=== PATIENT | male | born 1945 | race Caucasian/White ===

== ENCOUNTER → 2018-06-23 11:19 | Outpatient (CLI) | payer MEDICARE, OTHER, SELFPAY ==
--- NOTE | 2018-06-23 11:20 | DI.US.S_ITS ---
PROCEDURE: US ABD AORTA ANEURYSM SCREEN INDICATIONS: SCREENING TECHNIQUE: Real time scanning was performed of the aorta and iliac arteries, with image documentation. COMPARISON: None. FINDINGS: Aorta: Proximal aortic is not seen. Mid-aorta measures 1.9 cm. Distal aortic diameter is 1.9 cm. Iliac arteries: Right common iliac artery measures 1.4 cm. Left common iliac artery measures 1.3 cm. IMPRESSION: Negative for aneurysm. Dictated by: Derrick Wise M.D. on 06/23/2018 at 13:08 Approved by: Derrick Wise M.D. on 06/23/2018 at 13:09
== END ==
PROVIDERS: Family Provider Family Medicine; PCP Student in an Organized Health Care Education/Training Program; Visit Provider Student in an Organized Health Care Education/Training Program
DX: Z13.6 Encounter for screening for cardiovascular disorders (principal)
CPT/HCPCS: 76706

== ENCOUNTER → 2018-07-28 11:33 | Outpatient (CLI) | payer MEDICARE, OTHER, SELFPAY ==
[2018-07-28 12:42] LABS: BUN Creatinine Ratio 35.7 (6-22); Blood Urea Nitrogen 25 mg/dL (9-20); Calcium 9.9 mg/dL (8.4-10.2); Carbon Dioxide 23 mmol/L (22-32); Chloride 106 mmol/L (98-107); Cholesterol 130 mg/dL (140-199); Estimated Glomerular Filt Rate > 60.0 mL/min (>60); Glucose 90 mg/dL (80-110); HDL Cholesterol 35 mg/dL (40-60); HEMOLYSIS 28 (0-50); LDL Cholesterol Calculated 75 mg/dL (<100); Potassium 4.8 mmol/L (3.4-5.1); Sodium 141 mmol/L (137-145); Triglycerides 102 mg/dL (35-150)
[2018-07-28 15:34] LABS: Vitamin D 25 Hydroxy (D3) 23.6 ng/mL (30.0-100.0)
== END ==
PROVIDERS: PCP Student in an Organized Health Care Education/Training Program; Visit Provider Student in an Organized Health Care Education/Training Program
DX: Z13.220 Encounter for screening for lipoid disorders (principal); I10 Essential (primary) hypertension; E55.9 Vitamin D deficiency, unspecified
CPT/HCPCS: 36415; 80048; 80061; 82306

== ENCOUNTER 2018-12-05 06:53 | Day surgery (SDC) | payer MEDICARE, OTHER, SELFPAY ==
--- NOTE | 2018-12-05 | PATH_ITS ---
[facility] Accession Number: [id number] . 01 Material submitted: . PART A: colon - APPENDOCELE OPENING POLYP PART B: colon - ASCENDING COLON POLYP PART C: anal canal - ANAL VERGE POLYP . 02 Diagnosis: A. Appendiceal Opening, Polyp, Biopsy: Benign lymphoid aggregate. . B. Ascending Colon, Polyp, Biopsy: Tubular adenoma. . C. Anal Verge, Polyp, Biopsy: Inflammatory polyp. Negative for dysplasia and malignancy. MRV/12/06/2018 . 02 Electronically signed: . Tasneem Rock MD, Pathologist NPI- [id number] . 01 Gross description: . Part A: APPENDOCELE OPENING POLYP: Received in formalin are 2 fragment(s) of arango, soft tissue measuring 0.1 x 0.1 x 0.1 cm to 0.3 x 0.2 x 0.2 cm which is entirely submitted and submitted entirely in 1 cassette(s) Part B: ASCENDING COLON POLYP: Received in formalin are 3 fragment(s) of arango, soft tissue measuring 0.1 x 0.1 x 0.1 cm to 0.3 x 0.2 x 0.2 cm which is entirely submitted and submitted entirely in 1 cassette(s) Part C: ANAL VERGE POLYP: Received in formalin is 1 fragment(s) of arango, soft tissue measuring 0.3 x 0.2 x 0.2 cm which is entirely submitted and submitted entirely in 1 cassette(s) /[facility] /[facility] . 02 Pathologist provided ICD-10: D12.2 . 02 CPT . 331423, 440218, 740111 Performed at: [address], [place], [place] [id number] MD Kyaw Olvera MD Phone: [phone] Performed at: 02 [facility] [address] [place] [id number] MD Tasneem Rock MD Phone: [phone]
[2018-12-05 07:52] VITALS: BMI 35.6
[2018-12-05 08:02] VITALS: BP 123/72; PULSE 58; RESP 20; TEMP 37.2; O2SAT 95
[2018-12-05] MEDS: SODIUM CHLORIDE 0.9% 1,000 ML 200 ML IV (08:17)
--- NOTE | 2018-12-05 09:12 | PM.HP.1 ---
History of Present Illness Date Patient Seen: 12/05/18 Time Patient Seen: 09:00 Chief complaint: [id number] SCREENING COLONOSCOPY Narrative: Patient is a gentleman here for a screening colonoscopy. His last exam was in the early . 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 Mother Diabetes mellitus Suicide Brother No problems noted. Family/Other No problems noted. Social History (Updated 05/02/18 @ 20:37 by RAS Norris) household members: family Smoking Status: Former smoker (30 years ago) alcohol intake: current substance use type: does not use Type(s) of exercise: none Family & Social History Family History Brother Diabetes mellitus Father No problems noted. Mother Diabetes mellitus Suicide Brother No problems noted. Family/Other No problems noted. Social History: household members family Tobacco & Substance use: Smoking Status Former smoker alcohol intake current Meds Home Medications Medication Instructions Recorded Confirmed Type dorzolamide 1 drp OPHTH BID #0 04/11/17 12/05/18 History latanoprost 1 drp OPHTH HS #0 04/11/17 12/05/18 History timolol maleate 1 drp OPHTH BID #0 04/11/17 12/05/18 History diphenhydramine-acetaminophen 2 tab PO HSP PRN #0 07/26/17 12/05/18 History [Tylenol PM Extra Strength] aspirin 81 mg chewable tablet 81 mg PO DAILY #90 tab 02/02/18 12/05/18 Rx meloxicam 15 mg tablet 15 mg PO Q DAY #90 tabs 06/12/18 12/05/18 Rx telmisartan 80 mg tablet 80 mg PO Q DAY #90 tab 07/13/18 12/05/18 Rx amlodipine 10 mg tablet 10 mg PO Q DAY #90 tab 11/06/18 12/05/18 Rx atorvastatin 40 mg tablet 40 mg PO HS #90 tab 11/06/18 12/05/18 Rx sertraline 100 mg tablet 100 mg PO Q DAY #90 tab 11/06/18 12/05/18 Rx tamsulosin 0.4 mg capsule 0.4 mg PO QDAY #90 cap 11/06/18 12/05/18 Rx Respironics Dreamstation BIPAP #1 ea 11/20/18 History Allergies Allergy/AdvReac Type Severity Reaction Status Date / Time No Known Drug Allergies Allergy Verified 12/05/18 08:07 Review of Systems Review of Systems All systems reviewed & are unremarkable except as noted in HPI and below Genitourinary Comments: Post void residual. Some frequency. Musculoskeletal Comments: Pain in hip post replacement. Exam Vital Signs (past 8 hours): - 12/05/18 08:02 Temperature 99.0 F Pulse Rate 58 L Respiratory Rate 20 Blood Pressure 123/72 Pulse Oximetry 95 Oxygen Delivery Method Room Air Narrative Exam Narrative: Pleasant cooperative patient no apparent distress. Lungs are clear to auscultation. No rales or rhonchi. Heart regular rate and rhythm no murmur gallop. Abdomen is soft nontender without mass. Quite protuberant No obvious hernias. Patient is alert and oriented x3. Assessment & Plan Assessment & Plan narrative: The patient for a screening colonoscopy. I have discussed the procedure with them. Risks of bleeding, perforation which would necessitate major operation, failure to find remove all lesions, the potential tattoo were all discussed. All questions were answered. They wished to proceed.
--- NOTE | 2018-12-05 09:14 | PM.PREOP ---
Pre-operative Note Interval Note History & Physical reviewed/Exam performed by Physician: Yes Changes to H&P: No ASA Class (for procedural sedation): III
[2018-12-05] MEDS: fentaNYL 250 MCG/5 ML INJ IV (09:38)
[2018-12-05] MEDS: MIDAZOLAM 5 MG/5 ML VIAL IV (09:40)
--- NOTE | 2018-12-05 09:51 | PM.OP.ENDO ---
Operative Date/Time/Diagnoses Date of procedure: 12/05/18 Time of procedure: 09:51 Pre-op diagnosis: Screening exam. Last exam over 15 years ago Post-op diagnosis: same (Possible polyps at the appendiceal opening, the ascending colon, and the anal verge.) Procedure & Clinicians Study performed: Colonoscopy with cold biopsy Same procedure as scheduled: Yes Indications: Screening Surgeon: Scott Ferrera Procedure Notes SCOAP/Timeout: Performed Procedure in detail: The patient was placed in the left lateral decubitus position and underwent IV sedation directed by the surgeon consisting of fentanyl and Versed. Digital exam was unremarkable. I really could not feel his prostate well due to his anatomy and the length of my finger.. The scope was inserted and advanced through the rectum into the sigmoid, descending, transverse, and ascending colon. Pressure was applied.. The cecum was reached identified by the ileocecal valve and the appendiceal opening. There was a tiny lesion in the appendiceal opening which I biopsied and removed. It may not be a polyp. The scope was gradually brought out. An additional tiny Polypoid lesion was found at the ascending colon. It was removed with biopsy forceps. The remainder of the colon was unremarkable. The scope ultimately was retroflexed in the rectum. The appearance was notable for what appeared to be a polyp like lesion. I biopsied it but only took 1 sample because it immediately began to bleed a bit and was clearly on a hemorrhoid. This made me suspect this was probably a scar. However we submitted the specimen.. The scope was removed and the patient tolerated the procedure well. The prep was adequate. Sedation minutes: 32 Findings: polyp (Possible polyps) Specimen(s): other (Lesion of the appendiceal opening, ascending colon, anus.) Complications: none Recommendations: Colonscopy in 5 years (Unless none of the lesions are neoplastic. Then you do not need to have another colonoscopy for screening purposes.) Follow up: as needed Disposition: PACU
[2018-12-05 09:55] VITALS: BP 138/76; PULSE 58; RESP 12; O2SAT 95
[2018-12-05 10:02] VITALS: BP 140/79; PULSE 60; RESP 14; TEMP 37; O2SAT 95
[2018-12-05 10:07] VITALS: BP 108/54; PULSE 85; RESP 15; O2SAT 95
[2018-12-05 10:11] VITALS: BP 112/55; PULSE 96; RESP 14; TEMP 36.9; O2SAT 94
[2018-12-05 10:21] VITALS: BP 117/69; PULSE 59; RESP 16; TEMP 36.6; O2SAT 96
== END 2018-12-05 10:50 | disposition home or self-care (01) ==
PROVIDERS: Family Provider Family Medicine; PCP Student in an Organized Health Care Education/Training Program; Visit Provider Specialist
PROC: 0DJD8ZZ Inspection of Lower Intestinal Tract, Via Natural or Artificial Opening Endoscopic (ICD-10-PCS; CPT 45378; principal; 2018-12-05 08:45)
DX: Z12.11 Encounter for screening for malignant neoplasm of colon (principal); G47.33 Obstructive sleep apnea (adult) (pediatric); E78.5 Hyperlipidemia, unspecified; I10 Essential (primary) hypertension; E66.9 Obesity, unspecified; Z68.30 Body mass index [BMI] 30.0-30.9, adult; D12.2 Benign neoplasm of ascending colon; K62.0 Anal polyp
CPT/HCPCS: 45380; 88305; 99152; 99153; J2250; J3010

== ENCOUNTER → 2019-08-02 12:59 | Outpatient (CLI) | payer MEDICARE, OTHER, SELFPAY ==
[2019-08-02 14:00] LABS: Hematocrit 46.4 % (41-53); Hemoglobin 16.1 g/dL (13.5-17.5); Mean Corpuscular HGB Conc 34.7 % (30-36); Mean Corpuscular Hemoglobin 31.6 PG (26-34); Mean Corpuscular Volume 91.3 fL (80-100); Platelet Count 320 X10^3/uL (150-400); Red Blood Cell Count 5.08 X10^6/uL (4.5-5.9); Red Cell Distribution Width 13.4 % (11.6-14.8); White Blood Cell Count 8.8 X10^3/uL (4.5-11.0)
[2019-08-02 14:43] LABS: BUN Creatinine Ratio 31.1 (6-22); Blood Urea Nitrogen 28 mg/dL (9-20); Calcium 10.1 mg/dL (8.4-10.2); Carbon Dioxide 30 mmol/L (22-32); Chloride 104 mmol/L (98-107); Estimated Glomerular Filt Rate > 60.0 mL/min (>60); Glucose 91 mg/dL (80-110); HEMOLYSIS < 15 (0-50); Potassium 4.8 mmol/L (3.4-5.1); Sodium 142 mmol/L (137-145)
== END ==
PROVIDERS: PCP Student in an Organized Health Care Education/Training Program; Visit Provider Student in an Organized Health Care Education/Training Program
DX: G47.30 Sleep apnea, unspecified (principal); I10 Essential (primary) hypertension; Z79.899 Other long term (current) drug therapy
CPT/HCPCS: 36415; 80048; 85027

== ENCOUNTER → 2020-08-08 13:56 | Outpatient (CLI) | payer MEDICARE, OTHER, SELFPAY ==
[2020-08-08 14:55] LABS: BUN Creatinine Ratio 27.3 (6-22); Blood Urea Nitrogen 21 mg/dL (9-20); Calcium 9.5 mg/dL (8.4-10.2); Carbon Dioxide 29 mmol/L (22-32); Chloride 105 mmol/L (98-107); Estimated Glomerular Filt Rate > 60.0 mL/min (>60); Glucose 92 mg/dL (80-110); HEMOLYSIS < 15 (0-50); Potassium 4.3 mmol/L (3.4-5.1); Sodium 137 mmol/L (137-145)
[2020-08-08 15:18] LABS: Vitamin D 25 Hydroxy (D3) 31.3 ng/mL (30.0-100.0)
== END ==
PROVIDERS: PCP Student in an Organized Health Care Education/Training Program; Referring Provider Student in an Organized Health Care Education/Training Program; Visit Provider Student in an Organized Health Care Education/Training Program
DX: E55.9 Vitamin D deficiency, unspecified (principal); E66.9 Obesity, unspecified; I10 Essential (primary) hypertension
CPT/HCPCS: 36415; 80048; 82306